=== PATIENT | female | born 1965 | race Caucasian/White ===

== ENCOUNTER 2017-03-21 13:26 | Outpatient (CLI) | payer SELFPAY ==
[~2017-03-21] VITALS: Ht 162.6 cm; Wt 59.0 kg
[~2017-03-21 13:26] MED LIST: CEPH-507 PO; HYDR-3812 PO; ONDA4TAB11 PO; ONDA4TAB8 PO; OXYC-465 PO; TAMS0.4C98 PO
== END 2017-03-21 15:51 ==
LOC: PREOP 13:26
PROVIDERS: ATTEND Urology
DX: Z01.818 Encounter for other preprocedural examination (principal); N20.1 Calculus of ureter

== ENCOUNTER 2017-03-22 05:50 | Day surgery (SDC) | payer OTHER ==
[~2017-03-22] VITALS: Ht 162.6 cm; Wt 59.0 kg
--- OUTSIDE RECORDS SUMMARY | 2017-03-22 05:53 | XMS REPORT | Continuity of Care Document ---
Author Author Formerly [facility], Later [facility] Address Unknown Phone Unavailable Allergies Active Description Code Type Severity Reaction Onset Reported/Identified Relationship to Patient Clinical Status Yes Cipro Drug Allergy N/A N/A 12/07/2008 Yes codeine Drug Allergy N/A N/A 12/07/2008 Medications Problems Date Dx Coded Attending Type Code Diagnosis Diagnosed By 12/07/2008 424.0 MITRAL VALVE DISORDERS 12/07/2008 424.0 MITRAL VALVE DISORDERS 12/07/2008 CARLOS ROSA APRN 424.0 MITRAL VALVE DISORDERS 07/18/2009 461.9 SINUSITIS ACUTE 07/18/2009 461.9 SINUSITIS ACUTE 07/18/2009 CARLOS ROSA APRN 461.9 SINUSITIS ACUTE 09/30/2009 465.9 UPPER RESPIRATORY INFECTION 09/30/2009 465.9 UPPER RESPIRATORY INFECTION 09/30/2009 CARLOS ROSA APRN 465.9 UPPER RESPIRATORY INFECTION 03/09/2011 401.1 HYPERTENSION, BENIGN ESSENTIAL 03/09/2011 786.50 UNSPECIFIED CHEST PAIN 03/09/2011 401.1 HYPERTENSION, BENIGN ESSENTIAL 03/09/2011 786.50 UNSPECIFIED CHEST PAIN 03/09/2011 CARLOS ROSA APRN 401.1 HYPERTENSION, BENIGN ESSENTIAL 03/09/2011 CARLOS ROSA APRN 786.50 UNSPECIFIED CHEST PAIN 03/11/2011 590.2 KIDNEY STONES 03/11/2011 590.2 KIDNEY STONES 03/11/2011 CARLOS ROSA APRN 590.2 KIDNEY STONES 07/01/2011 487.1 INFLUENZA 07/01/2011 487.1 INFLUENZA 07/01/2011 CARLOS ROSA APRN 487.1 INFLUENZA 07/16/2011 599.0 URINARY TRACT INFECTION 07/16/2011 788.1 pain during urination (dysuria) 07/16/2011 599.0 URINARY TRACT INFECTION 07/16/2011 788.1 pain during urination (dysuria) 07/16/2011 CARLOS ROSA APRN 599.0 URINARY TRACT INFECTION 07/16/2011 CARLOS ROSA APRN 788.1 pain during urination (dysuria) Procedures Code Description [place] [address] UA W/ CULTURE IF INDICATED 10/12/2012 08260 CULTURE URINE 71711 UA W/ CULTURE IF INDICATED 04/23/2014 38693 CULTURE URINE Results Encounters ACCT No. Visit Date/Time Discharge Status Pt. Type Provider Facility Loc./Unit Complaint [id number] 04/23/2014 11:24:00 04/23/2014 23: 59:59 [facility] Outpatient CARLOS ROSA APRN [id number] 10/12/2012 09:35:00 Document Registration [id number] 08/26/2011 10:07:00 Document Registration
[2017-03-22 06:20] VITALS: BP 129/65
[2017-03-22] MEDS ORDERED: LACTATED RINGERS 1,000 ML IV PRN (06:32)
[2017-03-22] MEDS ORDERED: MIDAZOLAM 2 MG/2 ML (VERSED) VIAL IV ONE (06:45)
[2017-03-22] MEDS ORDERED: ONDANSETRON 4 MG/2 ML (SDV) Z0FRAN IV ONE (06:45)
[2017-03-22] MEDS ORDERED: ROCURONIUM 50 MG/5 ML (ZEMURON) VIAL IV ONE (06:53)
[2017-03-22] MEDS ORDERED: ONDANSETRON 4 MG/2 ML (SDV) Z0FRAN ONE (06:53)
[2017-03-22] MEDS ORDERED: LACTATED RINGERS 0 ML IV ONE (06:53)
[2017-03-22] MEDS ORDERED: LIDOCAINE JELLY 2% (XYLOCAINE) 5 ML TUBE ONE (06:53)
[2017-03-22] MEDS ORDERED: LIDOCAINE PF 2% 5 ML (XYLOCAINE) VIAL ONE (06:53)
[2017-03-22] MEDS ORDERED: fentaNYL INJECTION 100 MCG/2 ML AMP ONE (06:53)
[2017-03-22] MEDS ORDERED: proPOfol 200 MG/20 ML (DIPRIVAN) VIAL IV ONE (06:53)
[2017-03-22] MEDS ORDERED: MIDAZOLAM 2 MG/2 ML (VERSED) VIAL ONE (06:54)
[2017-03-22] MEDS ORDERED: cefTRIAXone 1 GM/NS 50 ML IVPB IV ONE ×2 (07:00)
--- NOTE | 2017-03-22 07:18 | Progress Note-Pre Operative ---
Pre-Operative Progress Note H&P Reviewed The H&P was reviewed, patient examined and no changes noted. Date Seen by Provider: Mar 22, 2017 Time Seen by Provider: 07:17 Date H&P Reviewed: Mar 22, 2017 Time H&P Reviewed: 07:17 Pre-Operative Diagnosis: LT URETERAL STONE SAMEERA REHMAN MD Mar 22, 2017 7:18 am
[2017-03-22] MEDS ORDERED: ISOFLURANE (FORANE) 15 ML/15 MIN INHALATION ONE ×2 (07:33→07:44)
[2017-03-22] MEDS ORDERED: PHENYLEPHRINE INJ 10 MG/ML (NEO-SYNEPHRINE 1%) ONE ×2 (07:33→07:46)
[2017-03-22] MEDS ORDERED: PHENYLEPHRINE 100 MCG/ML 10 ML (ANESTHESIA) SYR ONE (07:47)
--- NOTE | 2017-03-22 07:59 | Progress Note-Post Operative ---
Post-Operative Progess Note Surgeon (s)/Risk Control Analyst (s) Surgeon SAMEERA REHMAN MD Risk Control Analyst: N/A Pre-Operative Diagnosis LT URETERAL STONE (PROXIMAL) Post-Operative Diagnosis SAME BUT DISTAL Procedure & Operative Findings Date of Procedure 03/22/17 Procedure Performed/Findings CYSTO, LT URETEROSCOPY WITH STONE LITHOTRIPSY Anesthesia Type GENERAL Estimated Blood Loss Estimated blood loss (mL): N/A Specimens/Packing Specimens Removed N/A Packing: N/A SAMEERA REHMAN MD Mar 22, 2017 7:59 am
--- NOTE | 2017-03-22 08:00 | Diagnostic Imaging Report ---
INDICATION: Left ESWL. COMPARISON: 03/11/2017. FINDINGS: Left pelvic calcification unchanged presumed phlebolith. There is stool in the colon limiting sensitivity for detection of the urolithiasis. No change. IMPRESSION: Unchanged left pelvic calcification, indeterminate phlebolith versus distal ureteral stone and no appreciable stones overlying the renal shadows. However, overlying stool limits sensitivity. Dictated by: Dictated on workstation # [id number]
--- NOTE | 2017-03-22 08:00 | Discharge Inst-Urology ---
Discharge Inst-Urology Discharge Medications New, Converted, or Re-newed RX: RX on Chart Patient Instructions/Follow Up Plan Please make appointment to been seen in office in 4 weeks. Increase oral fluids for 48 hours and then as needed. Diet and Activity as tolerated. If questions or concerns contact your physician Or seek help at emergency department. SAMEERA REHMAN MD Mar 22, 2017 8:00 am
[2017-03-22] MEDS ORDERED: MEPERIDINE (DEMEROL) INJ 50 MG/ML IVP PRN (08:15)
[2017-03-22] MEDS ORDERED: ONDANSETRON 4 MG/2 ML (SDV) Z0FRAN IVP PRN (08:15)
[2017-03-22] MEDS ORDERED: morphine INJ 10 MG/ML 1ML (SYR OR VIAL) IVP PRN (08:15)
[2017-03-22 09:00] VITALS: BP 131/77
[2017-03-22 09:01] VITALS: BP 131/77
[2017-03-22 09:35] VITALS: BP 135/80
--- NOTE | 2017-03-22 19:35 | OPERATIVE REPORT ---
DATE OF SERVICE: 03/22/2017 PREOPERATIVE DIAGNOSIS: Left proximal ureteral stone. POSTOPERATIVE DIAGNOSIS: Left distal ureteral stone. OPERATION PERFORMED: Cystoscopy, left ureteroscopy with stone lithotripsy. SURGEON: Skip Pendleton M.D. ANESTHESIA: General. COMPLICATIONS: None. PROCEDURE: Under satisfactory general anesthesia, the patient was placed in lithotomy position. Genitalia were prepped and draped in the usual sterile fashion. Cystoscope was introduced under direct vision. The bladder inside was normal; however, she has 2 to 3+ cystocele and a mild rectocele. Ureteric orifices were normal in shape, size and configuration. There was clear efflux, very sluggish on the left side. Using the foroblique lens, I dilated the left ureteral orifice and intramural portion and I could feel the stone impacted just proximal to the intramural portion. This allowed me to introduce a 6.9 Samoan semirigid ureteroscope, visualized the stone and broke it up completely with LithoClast at power of 100 and frequency of 5, so that I do not lose the stone proximally. The fragments flew into the bladder. I went beyond that into the mid and proximal ureter. There was no further fragment or stone. Inspected it antegrade and retrograde. I removed the ureteroscope, emptied the bladder with the rigid cystoscope. The patient tolerated the procedure and anesthesia well and was sent to recovery room in stable condition. Job ID: [id number] DocumentID: [id number] Dictated Date: 03/22/2017 08:02:50 Hr Business Partner Date: 03/22/2017 15:03:55 Dictated By: BOBBY STORM MD
== END 2017-03-22 09:55 | disposition home or self-care (01) ==
LOC: SDC 05:50
PROVIDERS: ATTEND Urology
DX: N20.1 Calculus of ureter (principal); I34.1 Nonrheumatic mitral (valve) prolapse
CPT/HCPCS: 74000; 87081

== ENCOUNTER → 2019-04-16 | Outpatient (CLI) | payer SELFPAY ==
[~2019-04-16] MED LIST changes: +ACHD5005 PO; +CATHETER FLUSH 10 ML SYR IV PRN; +HOLD METFORMIN - RECEIVED CONTRAST 20 ML VIAL IV SCH; -HYDR-3812 PO; +IOHEXOL 350 MG/ML 100 ML (OMNIPAQUE 350) VIAL IV ONE; +NS 100 ML (IVPB) BAG IV ONE
[2019-04-16 15:47] LABS: ALANINE AMINOTRANSFERASE 21 U/L (0-55); ALBUMIN 4.1 GM/DL (3.2-4.5); ALKALINE PHOSPHATASE 124 U/L (40-136); BILIRUBIN,TOTAL 0.3 MG/DL (0.1-1.0); BUN/CREATININE RATIO 25; CALCIUM 9.6 MG/DL (8.5-10.1); CARBON DIOXIDE 28 MMOL/L (21-32); CHLORIDE 106 MMOL/L (98-107); CREATININE SERUM 0.92 MG/DL (0.60-1.30); GFR ESTIMATED > 60; GLUCOSE 94 MG/DL (70-105); POTASSIUM 3.8 MMOL/L (3.6-5.0); SODIUM 142 MMOL/L (135-145); TOTAL PROTEIN 6.7 GM/DL (6.4-8.2)
--- NOTE | 2019-04-16 16:49 | Diagnostic Imaging Report ---
INDICATION: Hearing loss, temporal arteritis. COMPARISON: None available. TECHNIQUE: CT imaging of the neck was performed with IV contrast. 3-D MIP reformats are created and submitted. Appropriate mA and kVp are selected for CTA of the neck utilizing lowest dose possible. FINDINGS: There is a two-vessel branching pattern of the aortic arch with the right innominate and left common carotid arteries having a common origin. There is no abnormal wall thickening of the great vessels to suggest giant cell arteritis. Bilateral common carotid arteries are widely patent. No stenosis of the internal carotid arteries per NASCET criteria. The cervical segments of the bilateral internal carotid arteries are widely patent. The vertebral arteries are patent throughout the neck. The external carotid artery origins are normal on both sides without luminal narrowing or mural thickening. The temporal arteries remain patent on both sides without appreciable mural thickening by CT. No cervical lymphadenopathy. Lung apices are clear. The thyroid is normal. Airway is widely patent. No space-occupying mass within the visualized aspects of the brain. IMPRESSION: 1. No imaging features of giant cell arteritis (temporal arteritis). Dictated by: Dictated on workstation # [id number]
== END ==
LOC: RAD 15:06
PROVIDERS: ATTEND Pediatrics
DX: M35.3 Polymyalgia rheumatica (principal); M33.90 Dermatopolymyositis, unspecified, organ involvement unspecified; H91.90 Unspecified hearing loss, unspecified ear; M31.6 Other giant cell arteritis
CPT/HCPCS: 36415; 70498; 80053

== ENCOUNTER 2022-12-17 22:10 | Emergency (ER) | payer OTHER ==
[~2022-12-17] VITALS: Ht 165.1 cm; Wt 65.1 kg
[~2022-12-17 22:10] MED LIST changes: -CATHETER FLUSH 10 ML SYR IV PRN; -HOLD METFORMIN - RECEIVED CONTRAST 20 ML VIAL IV SCH; -IOHEXOL 350 MG/ML 100 ML (OMNIPAQUE 350) VIAL IV ONE; -NS 100 ML (IVPB) BAG IV ONE; -OXYC-465 PO; +OXYC-556 PO; -TAMS0.4C98 PO; +TMSL.4C PO
[2022-12-17] MEDS ORDERED: NS IV 1000 ML 1,000 ML IV STA (22:28)
--- NOTE | 2022-12-17 22:28 | ED General ---
General Chief Complaint: Post OP Complications/Pain Stated Complaint: POST OP NOT DRINKING Source of Information: Patient, Family Exam Limitations: No Limitations History of Present Illness Date Seen by Provider: Dec 17, 2022 Time Seen by Provider: 22:20 Initial Comments Patient is a 57-year-old female who presents to the emergency department with a chief complaint of not being able to drink or swallow. She had bilateral tonsillectomy and uvulectomy 2 days ago. She has not been able to hold down her swallow any of her medications. She is complaining of excess saliva in her mouth that is causing her to "choke". She has not been able to hold down any of her liquid pain medicine. She denies feeling dizzy or lightheaded when she stands. No decreased urinary output. No fevers or chills. No abdominal pain nausea or vomiting. Timing/Duration: 24 Hours Severity: Severe Associated Systoms: Malaise Allergies and Home Medications Allergies Coded Allergies: metronidazole (Verified Allergy, Mild, HIVES/SYNCOPE, 03/21/17) codeine (Verified Allergy, Unknown, 03/21/17) oxycodone (Verified Allergy, Unknown, 03/21/17) Patient Home Medication List Home Medication List Reviewed: Yes Review of Systems Review of Systems Constitutional: see HPI EENTM: throat pain, other (significant phlegm) Respiratory: no symptoms reported Cardiovascular: no symptoms reported Gastrointestinal: no symptoms reported Genitourinary: no symptoms reported Skin: no symptoms reported Psychiatric/Neurological: No Symptoms Reported Past Ywemann-Dwfuta-Birpyv Hx Patient Social History Tobacco Use?: No Substance use?: No Alcohol Use?: No Immunizations Up To Date Tetanus Booster (TDap): Unknown PED Vaccines UTD: No Seasonal Allergies Seasonal Allergies: No Past Medical History Surgeries: Yes (HERNIA) Respiratory: No Cardiac: Yes (MITRAL VALVE PROLAPSE) Neurological: Yes Headaches /Migraines Reproductive Disorders: No MAKE UP GIRL History: Menopausal Sexually Transmitted Disease: No HIV/AIDS: No Genitourinary: No Kidney Stones Gastrointestinal: No Musculoskeletal: No Endocrine: No HEENT: No Loss of Vision: Denies Hearing Impairment: Denies Cancer: No Psychosocial: No Integumentary: No Blood Disorders: No Adverse Reaction/Blood Tranf: No (N/A) Physical Exam Vital Signs Vital Signs - First Documented 12/17/22 22:25 Temp 37.4 Pulse 82 B/P (MAP) 141/71 (94) Pulse Ox 95 O2 Delivery Room Air Capillary Refill : Height, Weight, BMI Height: 5'4.00" Weight: 130lbs. 0.0oz. [id number]; 22.3 BMI Method:Estimated General Appearance: No Apparent Distress, WD/WN Eyes: Bilateral Eye Normal Inspection, Bilateral Eye PERRL, Bilateral Eye EOMI HEENT: Moist Mucous Membranes, Other (Bilateral eschars tonsillar fossae; erythema and edema posterior soft palate) Neck: Supple, Lymphadenopathy (L), Lymphadenopathy (R) Respiratory: Lungs Clear, Normal Breath Sounds, No Accessory Muscle Use, No Respiratory Distress Cardiovascular: Regular Rate, Rhythm, Normal Peripheral Pulses Gastrointestinal: Non Tender, Soft Extremity: Normal Inspection, Normal Range of Motion Neurologic/Psychiatric: Alert, Oriented x3, No Motor/Sensory Deficits, Normal Mood/Affect Skin: Normal Color, Warm/Dry Progress/Results/Core Measures Suspected Sepsis SIRS Temperature: Pulse: Respiratory Rate: Blood Pressure / Mean: Results/Orders My Orders Orders - STEPH DAVIS MD Ed Iv/Invasive Line Start (12/17/22 22:28) Ns Iv 1000 Ml (Sodium Chloride 0.9%) (12/17/22 22:28) Glycopyrrolate Injection (Glycopyrrolate (12/17/22 22:30) Fentanyl Injection (Fentanyl Injection (12/17/22 22:30) Ondansetron Injection (Zofran Injectio (12/17/22 22:45) Lidocaine 2% Viscous 15 Ml (Xylocaine Vi (12/17/22 23:30) Hydrocodone/Apap Oral Solution (Hydrocod (12/17/22 23:29) Medications Given in ED Current Medications Medications Dose Ordered Sig/Karissa Route Start Time Stop Time Status Last Admin Dose Admin Fentanyl Citrate 50 mcg ONCE ONCE IVP 12/17/22 22:30 12/17/22 22:31 DC 12/17/22 22:44 50 MCG Glycopyrrolate 0.2 mg ONCE ONCE IV 12/17/22 22:30 12/17/22 22:31 DC 12/17/22 22:52 0.2 MG Lidocaine HCl 5 ml ONCE ONCE PO 12/17/22 23:30 12/17/22 23:31 DC 12/17/22 23:34 5 ML Ondansetron HCl 4 mg ONCE ONCE IVP 8/18/23 22:45 12/17/22 22:46 DC 12/17/22 22:51 4 MG Vital Signs/I&O 12/17/22 22:25 Temp 37.4 Pulse 82 B/P (MAP) 141/71 (94) Pulse Ox 95 O2 Delivery Room Air Capillary Refill : Progress Note : Time: 23:28 Progress Note feeling MUCH better. will try a dose of oral pain meds Departure Impression Primary Impression: Post-operative pain Disposition: HOME, SELF-CARE Condition: Improved Departure-Patient Inst. Decision time for Depature: 23:46 Referrals: THU VICKERS MD (PCP/Family) Primary Care Physician Patient Instructions: Managing pain after surgery Add. Discharge Instructions: You can do 2 teaspoons or 10 mL of the viscous lidocaine solution every 3 hours as needed for pain. Swish and spit or swish and swallow. The scopolamine patch behind your ear for the excessive secretions. You can change this out in 3 days. Be careful and do not touch your eyes after handling the patch. Follow a dose of lidocaine with your oral pain medications. This should help you be able to tolerate them. Keep up on a schedule with your pain medications. If you are taking the hydrocodone daily, consider adding Miralax or a stool softener because the hydrocodone can cause constipation. Try and push as many fluids as you can especially electrolyte solutions such as adult Pedialyte, Gatorade, fitness jaimes. If you develop a fever over 101, worsening pain or any other emergent, concerning symptoms please return to the emergency department for reevaluation. Scripts Lidocaine HCl (Lidocaine HCl Viscous) 2 % Solution 10 ML MM Q4H, #120 ML Maximum of 8 doses in 24 hours Prov: STEPH DAVIS MD 12/17/22 Scopolamine (Transderm-Scop) 1 Mg/3 Day Patch.td72 1 EACH TD Q72H, #2 PATCH Prov: STEPH DAVIS MD 12/17/22 Copy Copies To 1: THU VICKERS MD, KATHRYN M MD Dec 17, 2022 22:28
[2022-12-17] MEDS ORDERED: GLYCOPYRROLATE INJ 0.2 MG/ML 2 ML VIAL IV ONE (22:30)
[2022-12-17] MEDS ORDERED: fentaNYL INJECTION 100 MCG/2 ML VIAL IVP ONE (22:30)
[2022-12-17] MEDS ORDERED: ONDANSETRON INJECTION 4 MG/2 ML (SDV) IVP ONE (22:45)
[2022-12-17] MEDS ORDERED: HYDROcodone/APAP 7.5MG-325 MG/15 ML ORAL SOLN PO STA (23:29)
[2022-12-17] MEDS ORDERED: LIDOCAINE 2% VISCOUS 15 ML UDC PO ONE (23:30)
[2022-12-17] MEDS ORDERED: SCOP1PAT10 TD (23:53)
[2022-12-17] MEDS ORDERED: LIDO15SO3 MM (23:53)
[2022-12-18 00:13] VITALS: BP 128/76
== END 2022-12-18 00:15 | disposition home or self-care (01) ==
LOC: EDUNIT# 22:10 → ER 22:13
DX: G89.18 Other acute postprocedural pain (principal); Z90.89 Acquired absence of other organs